=== PATIENT | female | born 1970 | race Caucasian/White ===

== ENCOUNTER → 2017-12-23 | Outpatient (CLI) | payer MEDICARE, BC ==
--- NOTE | 2017-12-23 10:47 | US ---
EXAMINATION TYPE: US abdomen complete DATE OF EXAM: 12/23/2017 COMPARISON: US 03/14/2011 CLINICAL HISTORY: R74.8 ABN LEVELS OF SERUM ENZYMES. EXAM MEASUREMENTS: Liver Length: 14.8 cm Gallbladder Wall: 0.1 cm CBD: 0.6 cm Spleen: 10.7 cm Right Kidney: 11.6 x 4.8 x 4.4 cm Left Kidney: 11.8 x 5.9 x 4.7 cm Pancreas: Obscured by bowel gas Liver: Partially Obscured by overlying bowel gas. In the visualized portions there is high hyperecho ic hepatic echotexture and diminished visualization of the portal triads, most commonly related to he patic steatosis. Gallbladder: Contracted, filled with gallstones. (Patient claims NPO since 10pm last night) Evidence for sonographic Coronel's sign: No CBD: Upper limits of normal Spleen: wnl Right Kidney: wnl Left Kidney: Inferior pole obscured by bowel gas Upper IVC: wnl Abd Aorta: wnl The intrahepatic portion of the IVC and proximal abdominal aorta are within normal limits. Common bi le duct is unremarkable. The spleen is unremarkable. Kidneys are symmetric and free of hydronephros is. No renal lesions are seen. IMPRESSION: 1. Cholelithiasis without sonographic evidence of acute cholecystitis, however the gallbladder is con tracted. 2. Findings suggesting mild hepatic steatosis.
== END | disposition home or self-care (01) ==
LOC: RADUSWWP 10:05
PROVIDERS: ATTEND Family Medicine
DX: K80.20 Calculus of gallbladder without cholecystitis without obstruction (principal)
CPT/HCPCS: 76700

== ENCOUNTER → 2018-01-30 | Day surgery (SDC) | payer MEDICARE, BC ==
[2018-01-27 15:14] VITALS: BMI 29.1
--- NOTE | 2018-01-29 16:21 | P.GSHP ---
History of Present Illness H&P Date: 01/30/18 CHIEF COMPLAINT: Cholecystitis HISTORY OF PRESENT ILLNESS: The patient is a 47-year-old female who presents with history of epigastric including right upper quadrant abdominal pain. She underwent diagnostic studies for her gallbladder. Separately her clinical picture was consistent with cholecystitis. Now she presents for surgical intervention. PAST MEDICAL HISTORY: Please see list PAST SURGICAL HISTORY: Please see list MEDICATIONS: Please see list ALLERGIES: Denies. SOCIAL HISTORY: No illicit drug use or recent tobacco use FAMILY HISTORY: Pertinent for gallbladder disease REVIEW OF ORGAN SYSTEMS: CONSTITUTIONAL: No reports of fevers or chills. HEENT: Denies any troubles with the vision or hearing. ENDOCRINE: No reports of hypothyroidism. No diabetes. RESPIRATORY: No recent pneumonias. CARDIOVASCULAR: Denies chest pain or palpitations GI: No blood in stools or constipation. MUSCULOSKELETAL: Has occasional joint pain including back pain. NEURO: No seizure disorders or headaches. No recent stroke. PSYCH: No depression or suicidal ideation. GENITOURINARY: No active blood in urine. No urinary hesitancy. HEMATOLOGIC: No personal or family history of DVTs or pulmonary emboli. SKIN: Skin cancer. PHYSICAL EXAM: VITAL SIGNS: Afebrile vital signs stable GENERAL: Well-developed pleasant in no acute distress. HEENT: No scleral icterus. Extraocular movements grossly intact. Moist buccal mucosa. NECK: Supple without lymphadenopathy. CHEST: Unlabored respirations. Equal bilateral excursions. CARDIOVASCULAR: Regular rate regular rhythm rhythm. Distal 2+ pulses. ABDOMEN: Soft, nondistended. Nontender MUSCULOSKELETAL: No clubbing, cyanosis, or edema. NEURO: Cranial nerves II to XII within normal limits. No focal or lateralizing signs. PSYCH: Alert and oriented to person, place and time. SKIN: Well-perfused good skin turgor. ASSESSMENT: 1. Chronic cholecystitis 3. Symptomatic gallstones. PLAN: 1. Will need a robotic cholecystectomy possible open. Benefits and risks were described. 2. Heparin for DVT prophylaxis 5000 units. 3. Antibiotic prophylaxis. Past Medical History Past Medical History: Cancer, Osteoarthritis (OA), Thyroid Disorder Additional Past Medical History / Comment(s): migranes fatty liver basal cell on nose History of Any Multi-Drug Resistant Organisms: None Reported Past Surgical History: Hysterectomy, Tubal Ligation Additional Past Surgical History / Comment(s): thyroidectomy, right ovary, basal cell on nose Past Anesthesia/Blood Transfusion Reactions: Motion Sickness, Postoperative Nausea & Vomiting (PONV) Smoking Status: Current every day smoker - Past Family History Mother Family Medical History: Cancer Additional Family Medical History / Comment(s): breast Medications and Allergies Home Medications Medication Instructions Recorded Confirmed Type Amitriptyline HCl [Elavil] 75 mg PO HS 01/27/18 01/27/18 History Cholecalciferol [Vitamin D3] 125 mcg PO DAILY 01/27/18 01/27/18 History Cyanocobalamin [Vitamin B-12] 500 mcg PO BID 01/27/18 01/27/18 History Cyclobenzaprine [Flexeril] 5 mg PO HS 01/27/18 01/27/18 History LORazepam [Ativan] 1 mg PO QID 01/27/18 01/27/18 History Levothyroxine Sodium 125 mcg PO QAM 01/27/18 01/27/18 History Multivitamins, Thera [Multivitamin 1 tab PO DAILY 01/27/18 01/27/18 History (formulary)] Omeprazole 40 mg PO QAM 01/27/18 01/27/18 History Sucralfate [Carafate] 1 gm PO QID 01/27/18 01/27/18 History traZODone HCL 100 mg PO HS 01/27/18 01/27/18 History Allergies Allergy/AdvReac Type Severity Reaction Status Date / Time No Known Allergies Allergy Verified 01/27/18 14:51
[~2018-01-30] MED LIST: BUPIVACAIN-EPI 0.5%-1:200,000 30 ML VIAL SQ ONE; DEXAMETHASONE SOD PHOSPHATE 10 MG/ML 1 ML VIAL IV ONE; GLYCOPYRROLATE 0.2 MG/ML 2 ML VIAL ONE; HEPARIN SODIUM,PORCINE 5,000 UNIT/ML 1 ML VIAL SQ ONE; INDOCYANINE GREEN 25 MG VIAL IV ONE; INDOCYANINE GREEN 25 MG VIAL IV STA; KETOROLAC 30 MG/ML 1 ML VIAL ONE; LACTATED RINGERS 1,000 ML IV ONE; LIDOCAINE 1% INJ 10MG/ML (20 ML MDV) ONE; MIDAZOLAM 2 MG/2 ML VIAL IV PRN; MIDAZOLAM 2 MG/2 ML VIAL ONE; NEOSTIGMINE 1 MG/ML 10 ML VIAL ONE; PROPOFOL 10 MG/ML 20 ML VIAL IV ONE; ROCURONIUM BROMIDE 10 MG/ML 10 ML VIAL IV ONE; SCOPOLAMINE 1.5MG/72HR PATCH TRANSDERM ONE; SUCCINYLCHOLINE CHLORIDE 100 MG/5 ML SYR IV ONE; ceFAZolin IN SWFI 2 GM/20 ML SYRINGE IVP ONE; fentaNYL (PF) 50 MCG/ML 2 ML AMP IV PRN; fentaNYL (PF) 50 MCG/ML 2 ML AMP ONE
[2018-01-30] MEDS: LACTATED RINGERS 1,000 ML IV SCH ×2 (06:35→07:31)
[2018-01-30] MEDS: ONDANSETRON 4 MG/2 ML VIAL IVP ONE ×2 (06:35→09:57)
[2018-01-30 09:23] VITALS: TEMP 96.8
[2018-01-30] MEDS: HYDROmorphone 1 MG/ML 1 ML SYRINGE IVP ONE ×2 (09:59→10:16)
--- NOTE | 2018-01-30 10:46 | P.OP ---
Date of Procedure: 01/30/18 Description of Procedure: SURGEON: KAYLEE TORRES MD OYSTER PREPARER: WERNER ADAIR PREOPERATIVE DIAGNOSES: 1. History of choledocholithiasis. 2. Symptomatic gallstones. 3. Anxiety 4. Depression disorder 5. History of chronic pain 6. Osteoarthritis, generalized 7. Gastroesophageal reflux disease 8. History of thyroid cancer 9. History of tobacco abuse POSTOPERATIVE DIAGNOSES: 1. History of choledocholithiasis. 2. Symptomatic gallstones. 3. Anxiety 4. Depression disorder 5. History of chronic pain 6. Osteoarthritis, generalized 7. Gastroesophageal reflux disease 8. History of thyroid cancer 9. 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 Tobacco abuse OPERATION: Robotic-assisted da Vazquez Xi laparoscopic cholecystectomy, multiport with FIREFLY ESTIMATED BLOOD LOSS: 75 mL. SPECIMENS REMOVED: Gallbladder. COMPLICATIONS: None. OPERATIVE FINDINGS: 1. Chronic cholecystitis INDICATIONS: The patient is a 47-year-old female who presents with a past history of choledocholithiasis Surgical intervention with a laparoscopic cholecystectomy was described at length including injury to the biliary tree, bleeding, infection, need for further surgery. Informed consent was obtained. Robotic assisted laparoscopic approach was described. Benefits and risks of the procedure including but not limited to bleeding, infection, injury to the biliary tree was described. Informed consent was obtained. DESCRIPTION OF PROCEDURE: Patient was brought to the operating room, placed in supine position. After general induction, the abdomen had been prepped and draped in standard sterile fashion. The robotic da Vazquez XI system was primed. After a timeout protocol was performed, the patient had been prepped and draped in standard sterile fashion. The patient was injected with indocyanine green. A 5 mm 0 degrees laparoscopic trocar entry was performed along the left upper quadrant. The abdomen insufflated to 15 mmHg pressure which she tolerated well. Diagnostic laparoscopy demonstrated no injury to bowel viscera or mesentery. The liver surface was unremarkable. The gallbladder was hypoplastic in appearance. Next, two 8 mm robotic ports were placed along the right upper abdomen. The camera 8-mm port was maintained along the epigastrium. Another 8 mm port was placed along the left upper abdominal wall after exchanging the 5 mm port. Please note that the ports were placed at least 10 to 15 cm away from the target anatomy of the gallbladder. The robot was docked along the left lateral abdomen. The patient was repositioned in reverse Trendelenburg position. Using a grasper for arm 3, a grasper for arm 4, including hook cautery for arm 1 , the robotic system was docked and primed as described. Instruments were interchanged by the psych assistant including hook cautery, Bovie cautery and clip appliers. I had sat at the console. Adhesions were identified along the infundibulum of the gallbladder and addressed using hook cautery. The gallbladder fundus was retracted over the dome of the liver. Initial attention was brought to the infundibulum which was gently retracted in the inferior lateral approach. Using a grasper, the cystic duct including the cystic artery was carefully skeletonized. The cystic duct was short and dilated. Using firefly, the common bile duct was identified and also similarly dilated. To carefully isolate the cystic structures, a dome down technique of the gallbladder was performed with bleeding identified along the liver bed control using vessel sealer. With the short nature of the cystic duct and to avoid injury to the common bile duct, transection of the infundibulum was proposed using a robotic 30 mm stapler. The ports along the left upper quadrant was exchanged for a 12 mm port. Robotic stapler arm was applied. The gallbladder was divided along the infundibulum using a 30 mm green load. Bleeding along the staple line was controlled using Bovie artery. Electro-Bovie cautery was used to remove the gallbladder from the hepatic fossa. Hemostasis was checked and found to be adequate. The robot was undocked. I re-scrubbed into the case. Using a 10 mm Endo Catch bag via the left upper quadrant incision, the specimen was removed from the abdominal cavity. All pneumoperitoneum instruments were evacuated from the abdominal cavity. The incisions were reapproximated using 4-0 Monocryl in an interrupted subcuticular fashion. Fascial defects were less than 8 mm in size. Please note along the trocar sites, local anesthetic was placed as a field block prior to insertion of all instruments. Liquid glue was applied to the skin. At the end of the procedure needle, sponge, and instrument count had been verified correct by the surgical assistant certified. The patient was transferred to postanesthesia care unit in stable condition. Intraoperative films were shared with the patient's family. Console time 39 minutes Plan - Discharge Summary New Discharge Prescriptions: New Ibuprofen [Motrin] 600 mg PO Q8HR PRN #20 tab PRN Reason: Pain No Action Cyclobenzaprine [Flexeril] 5 mg PO HS Cholecalciferol [Vitamin D3] 125 mcg PO DAILY Cyanocobalamin [Vitamin B-12] 500 mcg PO BID Sucralfate [Carafate] 1 gm PO QID traZODone HCL 100 mg PO HS Omeprazole 40 mg PO QAM Amitriptyline HCl [Elavil] 75 mg PO HS Levothyroxine Sodium 125 mcg PO QAM LORazepam [Ativan] 1 mg PO QID Multivitamins, Thera [Multivitamin (formulary)] 1 tab PO DAILY Discharge Medication List Amitriptyline HCl [Elavil] 75 mg PO HS 01/27/18 [History] Cholecalciferol [Vitamin D3] 125 mcg PO DAILY 01/27/18 [History] Cyanocobalamin [Vitamin B-12] 500 mcg PO BID 01/27/18 [History] Cyclobenzaprine [Flexeril] 5 mg PO HS 01/27/18 [History] LORazepam [Ativan] 1 mg PO QID 01/27/18 [History] Levothyroxine Sodium 125 mcg PO QAM 01/27/18 [History] Multivitamins, Thera [Multivitamin (formulary)] 1 tab PO DAILY 01/27/18 [History ] Omeprazole 40 mg PO QAM 01/27/18 [History] Sucralfate [Carafate] 1 gm PO QID 01/27/18 [History] traZODone HCL 100 mg PO HS 01/27/18 [History] Ibuprofen [Motrin] 600 mg PO Q8HR PRN #20 tab 01/30/18 [Rx] Follow up Appointment(s)/Referral(s): Kaylee Torres MD [STAFF PHYSICIAN] - 02/03/18 Patient Instructions/Handouts: *Surgery [facility] - (Anesthesia) Discharge Instructions Outpatient Surgery, Laparoscopic Cholecystectomy (DC) Activity/Diet/Wound Care/Special Instructions: Low-fat diet. May shower. No bath tub soaks. No lifting over 5 pounds in 1 week. Discharge Disposition: HOME SELF-CARE
[2018-01-30 10:51] VITALS: RESP 18
[2018-01-30 11:14] LABS: Basophils % (A) 0 %; Eosinophils % (A) 0 %; HCT 41.8 % (34.0-46.0); HGB 13.6 gm/dL (11.4-16.0); Lymphocytes # (A) 0.9 k/uL (1.0-4.8); Lymphocytes % (A) 8 %; MCH 33.1 pg (25.0-35.0); MCHC 32.5 g/dL (31.0-37.0); Macrocytosis Slight; Mean Platelet Volume 7.1; Monocytes # (A) 0.2 k/uL (0-1.0); Monocytes % (A) 2 %; Neutrophils # (A) 10.2 k/uL (1.3-7.7); Neutrophils % (A) 90 %; Platelet Count 267 k/uL (150-450); RDW 12.9 % (11.5-15.5); WBC 11.3 k/uL (3.8-10.6)
[2018-01-30 11:35] LABS: ALT 29 U/L (9-52); AST 26 U/L (14-36); Albumin 3.7 g/dL (3.5-5.0); Alkaline Phosphatase 91 U/L (38-126); Anion Gap 8 mmol/L; Blood Urea Nitrogen 8 mg/dL (7-17); Calcium 8.8 mg/dL (8.4-10.2); Carbon Dioxide 24 mmol/L (22-30); Chloride 110 mmol/L (98-107); Glucose 126 mg/dL (74-99); Potassium 4.2 mmol/L (3.5-5.1); Sodium 142 mmol/L (137-145); Total Bilirubin 0.3 mg/dL (0.2-1.3); Total Protein 6.4 g/dL (6.3-8.2)
[2018-01-30 11:44] VITALS: BP 134/89; PULSE 72
== END | disposition home or self-care (01) ==
LOC: OR 06:10
PROVIDERS: ATTEND Surgery Plastic and Reconstructive Surgery
DX: K80.10 Calculus of gallbladder with chronic cholecystitis without obstruction (principal); F41.9 Anxiety disorder, unspecified; F32.9 Major depressive disorder, single episode, unspecified; G89.29 Other chronic pain; M15.9 Polyosteoarthritis, unspecified; K21.9 Gastro-esophageal reflux disease without esophagitis; G43.909 Migraine, unspecified, not intractable, without status migrainosus; K76.0 Fatty (change of) liver, not elsewhere classified; E89.0 Postprocedural hypothyroidism; F17.210 Nicotine dependence, cigarettes, uncomplicated; Z79.890 Hormone replacement therapy; Z79.899 Other long term (current) drug therapy; Z85.850 Personal history of malignant neoplasm of thyroid; Z85.828 Personal history of other malignant neoplasm of skin; Z90.710 Acquired absence of both cervix and uterus; Z98.51 Tubal ligation status
CPT/HCPCS: 81025; 88304; 80053; 85025; 47562; J2250; J1644; J1100; J2710; J2405; J2001; J3010; J1885; J1170; J0330; J2704; J0690

== ENCOUNTER → 2020-02-09 | Outpatient (CLI) | payer MEDICARE ==
--- NOTE | 2020-02-09 21:16 | MR ---
EXAMINATION TYPE: MR knee RT wo con DATE OF EXAM: 02/09/2020 COMPARISON: NONE HISTORY: Right knee pain, slipping injury 12-25-19. Internal derangement per order. TECHNIQUE: Multiplanar, multisequence images of the knee is performed without IV contrast. FINDINGS: MEDIAL MENISCUS: Anterior and posterior horns are intact without tear. LATERAL MENISCUS: Anterior and posterior horns are intact without tear. CRUCIATE LIGAMENTS: The anterior and posterior cruciate ligaments are intact and unremarkable. COLLATERAL LIGAMENTS: The medial collateral ligament and lateral collateral ligament complex are inta ct and unremarkable. EXTENSOR MECHANISM: Visualized quadriceps and patellar tendons are intact. EFFUSION: No significant suprapatellar joint effusion. POPLITEAL CYST: No popliteal/colmenares cyst. TRICOMPARTMENT SPACES: Tricompartment joint space is fairly well-maintained. No significant spurring. CARTILAGE: Tricompartment articular cartilage is preserved. BONE MARROW SIGNAL: Heterogeneous increased T2 signal involving the posterior aspect of the distal la teral femoral metaphysis and proximal condyle. Area of involvement is over a roughly 4 x 3 x 2.5 cm a yvonne. OTHER: Additional small amount of ill-defined fluid in the posterior leg muscles beginning near level of knee joint extending inferiorly could reflect resolving soft tissue and intramuscular injury or h ematoma. IMPRESSION: 1. Fairly moderate size osseous contusion involving the posterior aspect of the lateral distal femora l metaphysis and proximal condyle. Small resolving posterior intermuscular fluid collection or ill-de fined hematoma noted. 2. No meniscal or ligamentous tear is seen.
== END | disposition home or self-care (01) ==
LOC: RADMRIMAIN 19:15
PROVIDERS: ATTEND Physician Assistant
DX: S80.01XA Contusion of right knee, initial encounter (principal)